=== PATIENT | female | born 1985 | race Two or more races ===

== ENCOUNTER 2021-03-28 09:00 | Observation (INO) | payer BC, MEDICAID ==
[~2021-03-28] VITALS: Ht 154.9 cm; Wt 96.2 kg
[2021-03-28] MEDS ORDERED: TERBUTALINE SULFATE 1 MG/ML 1ML VIAL SC ONE ×3 (10:30→12:15)
== END 2021-03-28 13:05 | disposition home or self-care (01) ==
LOC: LDRP 09:00
PROVIDERS: ADMIT Obstetrics & Gynecology; ATTEND Obstetrics & Gynecology
DX: O21.2 Late vomiting of pregnancy (principal); O99.891 Other specified diseases and conditions complicating pregnancy; M54.9 Dorsalgia, unspecified; R10.30 Lower abdominal pain, unspecified; O62.9 Abnormality of forces of labor, unspecified; Z3A.26 26 weeks gestation of pregnancy
CPT/HCPCS: 59025; 81002; 96372; G0378; G0379; J3105

== ENCOUNTER 2024-10-21 04:37 | Emergency (ER) | payer BC ==
[~2024-10-21] VITALS: Ht 152.4 cm; Wt 90.9 kg
[2024-10-21 04:37] VITALS: BP 154/95; PULSE 108; TEMP 98.4
--- NOTE | 2024-10-21 05:02 | ED.PDOC ---
SOB-HPI HPI Comments C/C of asthma exacerbation since Thursday. No relief with Albuterol Inhaler. Pt breathing even and unlabored on room air, satting at 94%. Speaking in clear even sentences. Wheezes noted. NKDA. Time Seen by MD: 04:43 Primary Care Provider: Gerardo Reviewed notes: Nurses Notes, Medications, Allergies Information Source: Patient Past Medical History Immunizations: Current Medical History: Denies Medical History: Asthma Operations: Denies Family History Family History: Unknown Social History Smoking: Non-Smoker Alcohol: Denies ETOH Use Drugs: Denies Drug Use Lives In: Home Constitutional: denies: chills, diaphoresis, fatigue, fever, malaise, sweats, weakness, others EENTM: denies: blurred vision, double vision, ear bleeding, ear discharge, ear drainage, ear pain, ear ringing, eye pain, eye redness, hearing loss, mouth pain, mouth swelling, nasal discharge, nose bleeding, nose congestion, nose pain, photophobia, tearing, throat pain, throat swelling, voice changes, others Respiratory: reports: cough, shortness of breath, wheezing; denies: hemoptysis, orthopnea, SOB at rest, SOB with excertion, stridor, others Cardiovascular: denies: chest pain, dizzy spells, diaphoresis, Dyspnea on exertion, edema, irregular heart beat, left arm pain, lightheadedness, palpitations, PND, syncope, others Gastrointestinal: denies: abdomen distended, abdominal pain, blood streaked bowels, constipated, diarrhea, dysphagia, difficulty swallowing, hematemesis, melena, nausea, poor appetite, poor fluid intake, rectal bleeding, rectal pain, vomiting, others Genitourinary: denies: abnormal vagina bleeding, burning, dyspareunia, dysuria, flank pain, frequency, hematuria, incontinence, pain, , vagina discharge, urgency, others Neurological: denies: dizziness, fainting, headache, left sided numbness, left sided weakness, numbness, paresthesia, pre-existing deficit, right sided numbness, right sided weakness, seizure, speech problems, tingling, tremors, weakness, others Musculoskeletal: denies: back pain, gout, joint pain, joint swelling, muscle pain, muscle stiffness, neck pain, others Integumetry: denies: bruises, change in color, change in hair/nails, dryness, laceration, lesions, lumps, rash, wounds, others Allergic/Immunocompromised: denies: Difficulty Healing, Frequent Infections, Hives, Itching, others Hematologic/Lymphatic: denies: anemia, blood clots, easy bleeding, easy bruising, swollen glands, others Endocrine: denies: excessive hunger, excessive sweating, excessive thirst, excessive urination, flushing, intolerance to cold, intolerance to heat, unexplained weight gain, unexplained weight loss, others Psychiatric: denies: anxiety, bipolar disorder, depression, hopeless, panic disorder, schizophrenia, sleepless, suicidal, others Physical Exam General Appearance: No Apparent Distress, Normal HEENT: Pharynx Normal Neck: Full Range of Motion, Non-Tender Respiratory: Chest Non-Tender, Expiration, Inspiration, No Accessory Muscle Use, No Respiratory Distress, Wheezing Cardiovascular: No Edema, No JVD, No Murmur, No Gallop, Normal Peripheral Pulses, Regular Rate/Rhythm Breast Exam: Deferred Gastrointestinal: Non Tender, Soft Genitalia: Deferred Pelvic: Deferred Rectal: Deferred Extremities: Normal capillary refill, Normal inspection, Normal range of motion, Non-tender, No pedal edema Musculoskeletal : Apperance: Normal Neurologic: Alert, No Motor Deficits, Normal Affect, Normal Mood, No Sensory Deficits Cerebellar Function: Normal Reflexes: Normal Skin: Dry, Normal Color, Warm Lymphatic: No Adenopathy Was a procedure done? Was a procedure done?: No Differential Dx Differential Diagnosis: Asthma, Pneumonia X-Ray, Labs, Meds, VS Vital Signs Date Time Temp Pulse Resp B/P (MAP) Pulse Ox O2 Delivery O2 Flow Rate FiO2 10/21/24 05:27 18 94 Room Air* 0 21 10/21/24 04:37 98.4 108 17 154/95 (114) 94 98.4 10/21/24 04:37 17 94 Room Air* 0 21 Current Medications Medications (Trade) Dose Ordered Sig/Connie Route Start Time Stop Time Status Last Admin Albuterol (Ventolin Medneb) 5 mg ONCE ONCE NEB 10/21/24 05:00 10/21/24 05:01 DC 10/21/24 05:27 Ipratropium [place] (Atrovent Medneb) 0.5 mg ONCE ONCE NEB 10/21/24 05:00 10/21/24 05:01 DC 10/21/24 05:27 Methylprednisolone Sodium Succinate (Solu Medrol) 125 mg ONCE ONCE IM 10/21/24 05:00 10/21/24 05:01 DC 10/21/24 05:06 X-Ray, Labs, Meds, VS Comment PATIENT GIVEN DUO NEB LUNG SOUNDS CLEAR AND EQUAL BILATERAL WITH IMPROVEMENT PATIENT REQUESTING DISCHARGE AT THIS TIME. SCRIPT PREDNISONE 5 DAY COURSE. PATIENT WAS GIVEN SOLU-MEDROL 125 MG IM. ADVISED TO FOLLOW UP WITH HER PCP IN 2-3 DAYS NECESSARY ER RETURN PRECAUTIONS GIVEN PATIENT INDICATES UNDERSTANDING AGREES WITH DISCHARGE PLAN OF CARE. Time of 1ST Reevaluation: 05:00 Reevaluation 1ST: Unchanged Time of 2ND Reevaluation: 05:52 Reevaluation 2ND: Improved Patient Education/Counseling: Diagnosis, Treatment, Prognosis, Need For Follow Up Family Education/Counseling: No Family Present Departure 1 Departure Time of Disposition: 05:52 Impression: Primary Impression: Asthma attack Qualified Codes: J45.31 - Mild persistent asthma with (acute) exacerbation Disposition: 01 HOME / SELF CARE / HOMELESS Condition: Stable e-Prescriptions Prednisone (Prednisone) 20 Mg Tab 2 TAB PO DAILY@BREAKFAST for 5 Days, #10 TAB Prov: ROSS CAICEDO 10/21/24 Discharged With: Self Critical Care Note Critical Care Time?: No Stability Stability form required: ROSS Cintron Oct 21, 2024 05:02
[2024-10-21] MEDS: methylPREDNISolone SOD SUCC 125 MG/2 ML VL IM ONE (05:06)
[2024-10-21 05:27] VITALS: RESP 18; O2SAT 94
[2024-10-21] MEDS: ALBUTEROL SULF 2.5 MG/0.5ML(0.5%) NEB SOLN NEB ONE (05:27)
[2024-10-21] MEDS: IPRATROPIUM BROM 0.5 MG/2.5ML INH SOL NEB ONE (05:27)
[2024-10-21] MEDS ORDERED: FLUT100A7 IN (05:52)
[2024-10-21] MEDS ORDERED: PRED20TA2 PO (05:59)
== END 2024-10-21 08:08 | disposition home or self-care (01) ==
LOC: ER 04:37
DX: J45.901 Unspecified asthma with (acute) exacerbation (principal)
CPT/HCPCS: 94640; 96372; 99283; J2919